=== PATIENT | female | born 1935 | race Caucasian/White ===

== ENCOUNTER 2019-02-01 09:11 | Outpatient (CLI) | payer MEDICARE ==
[2019-02-01 13:02] LABS: #Basophils 0.1 thou/uL (0.0-0.2); #Eosinphils 0.2 thou/uL (0.0-0.7); #Lymphocytes 2.6 thou/uL (1.20-3.40); #Monocytes 0.5 thou/uL (0.11-0.59); #Neutrophils 2.9 thou/uL (1.40-6.50); %Basophils 0.9 % (0.0-1.0); %Eosinophils 3.6 % (0.0-10.0); %Lymphocytes 42.1 % (21.0-51.0); %Monocytes 7.5 % (0.0-10.0); Hemoglobin 14.4 g/dL (12.0-16.0); Mean Corpuscular HGB CONC 33.4 g/dL (32.0-36.0); Mean Corpuscular Hemoglobin 31.3 pg (27.0-31.0); Mean Corpuscular Volume 93.5 fL (78.0-98.0); Mean Platelet Volume 8.6 fL (7.4-10.4); Platelet Count 227 thou/uL (130-400); RBC Distribution Width 12.3 % (11.5-14.5); Red Blood Cell (RBC) Count 4.61 mill/uL (4.20-5.40); White Blood Cell (WBC) Count 6.3 thou/uL (4.8-10.8)
[2019-02-01 13:10] LABS: Prothrombin Time 12.8 SEC (12.0-14.7)
[2019-02-01 13:25] LABS: Anion Gap 13 mmol/L (10-20); BUN (Urea Nitrogen) 15 mg/dL (9.8-20.1); Calc. Creatinine Clearance 0 mL/min (70-130); Calcium 10.2 mg/dL (7.8-10.44); Carbon Dioxide 27 mmol/L (23-31); Chloride 104 mmol/L (98-107); Estimated GFR-MDRD 67; Glucose 99 mg/dL (83-110); Potassium 4.4 mmol/L (3.5-5.1); Sodium 140 mmol/L (136-145)
--- NOTE | 2019-02-01 14:50 | RAD ---
2 VIEW CHEST: Date: 02/01/19 HISTORY: Preop. FINDINGS: Lungs are clear. Heart and mediastinum unremarkable. Osseous structures unremarkable. IMPRESSION: No acute findings. POS: [facility]
== END 2019-02-01 09:12 | disposition home or self-care (01) ==
LOC: LABBT 09:11
PROVIDERS: ATTEND Orthopaedic Surgery
DX: Z01.818 Encounter for other preprocedural examination (principal); M17.11 Unilateral primary osteoarthritis, right knee
CPT/HCPCS: 71046; 80048; 85025; 85610; 87081

== ENCOUNTER 2019-03-12 07:56 | Outpatient (CLI) | payer MEDICARE ==
[2019-03-12 09:36] LABS: #Basophils 0.1 thou/uL (0.0-0.2); #Eosinphils 0.2 thou/uL (0.0-0.7); #Lymphocytes 2.2 thou/uL (1.20-3.40); #Monocytes 0.6 thou/uL (0.11-0.59); #Neutrophils 2.7 thou/uL (1.40-6.50); %Eosinophils 2.9 % (0.0-10.0); %Lymphocytes 39.1 % (21.0-51.0); Hemoglobin 14.2 g/dL (12.0-16.0); Mean Corpuscular HGB CONC 34.5 g/dL (32.0-36.0); Mean Corpuscular Hemoglobin 31.6 pg (27.0-31.0); Mean Corpuscular Volume 91.6 fL (78.0-98.0); Platelet Count 211 thou/uL (130-400); RBC Distribution Width 11.9 % (11.5-14.5); White Blood Cell (WBC) Count 5.7 thou/uL (4.8-10.8)
[2019-03-12 09:39] LABS: Prothrombin Time 12.8 SEC (12.0-14.7)
[2019-03-12 09:54] LABS: Anion Gap 14 mmol/L (10-20); BUN (Urea Nitrogen) 13 mg/dL (9.8-20.1); Calc. Creatinine Clearance 0 mL/min (70-130); Calcium 9.7 mg/dL (7.8-10.44); Carbon Dioxide 26 mmol/L (23-31); Cardiac Risk 2.8 (Less than 4.5); Chloride 105 mmol/L (98-107); Cholesterol 127 mg/dl (< 200 Desired); Estimated GFR-MDRD 79; Glucose 109 mg/dL (83-110); HDL Cholesterol 45 mg/dL (>60 Neg Risk); LDL Cholesterol, Calculated 56 mg/dL; Potassium 4.5 mmol/L (3.5-5.1); Sodium 140 mmol/L (136-145); Triglycerides 128 mg/dL (Less than 150)
[2019-03-12 10:31] LABS: Bacteria/HPF None Seen HPF (None Seen); RBC/HPF None Seen HPF (0-3); Squamous Epithelial 0-3 HPF (0-3); WBC/HPF None Seen HPF (0-3)
== END 2019-03-12 07:57 | disposition home or self-care (01) ==
LOC: LABBT 07:56
PROVIDERS: ATTEND Orthopaedic Surgery
DX: Z01.818 Encounter for other preprocedural examination (principal); M17.11 Unilateral primary osteoarthritis, right knee
CPT/HCPCS: 80048; 80061; 81015; 85025; 85610; 87081; 93005; 93010

== ENCOUNTER 2019-03-13 06:59 | Inpatient (IN) | payer MEDICARE ==
[2019-03-12 08:19] VITALS: BMI 28.3
[2019-03-13] MEDS ORDERED: Midazolam HCl 2 mg/2 ml Vial ONE (07:12)
[2019-03-13] MEDS ORDERED: Fentanyl 100 MCG/2 ML VIAL ONE ×4 (07:12→11:55)
[2019-03-13] MEDS ORDERED: Tranexamic Acid 1,000 MG/10 ML VIAL ONE ×2 (07:18→11:47)
[2019-03-13] MEDS ORDERED: ceFAZolin Sodium (SDC) 2 GM/100 ML BAG ONE (07:18)
[2019-03-13] MEDS ORDERED: Zolpidem Tartrate 5 MG TAB PO PRN (08:09)
[2019-03-13] MEDS ORDERED: Ropivacaine HCl/PF 250 ML in Premix Bag 1 BAG NERVE BLCK SCH (08:09)
[2019-03-13] MEDS ORDERED: Ondansetron PF 4 MG/2 ML Vial IVP PRN (08:09)
[2019-03-13] MEDS ORDERED: traMADol HCl 50 MG TAB PO PRN ×2 (08:09)
[2019-03-13] MEDS ORDERED: Promethazine HCl 25 MG/ML VIAL IM PRN ×2 (08:09→11:07)
[2019-03-13] MEDS ORDERED: Fentanyl 100 MCG/2 ML VIAL IV PRN (08:15)
[2019-03-13] MEDS ORDERED: Bupivacaine/Epinephrine 0.25% 30 ML VIAL ONE (09:06)
--- NOTE | 2019-03-13 10:54 | HP ---
PREOPERATIVE DIAGNOSIS: Right knee osteoarthritis. HISTORY OF PRESENT ILLNESS: Ms. Trujillo is an 83-year-old female, who presents with pain both medially and laterally, start-up pain. She had significant pain for 2 years. Pain be 7/10. She had recent injection with good relief as well as taking the anti-inflammatories. The patient desired to proceed with surgical intervention. The has history of depression, TIA, low vitamin D, and hypertension. PAST SURGICAL HISTORY: Includes cataract surgeries, back surgeries, previous deliveries. MEDICATIONS: Include; 1. Aspirin. 2. Atorvastatin. 3. Calcium carbonate. 4. Vitamin D. 5. Fish oil. 6. Glucosamine. 7. Loratadine. 8. Multivitamin. 9. Ocuvite eye tablet. ALLERGIES: NO KNOWN DRUG ALLERGIES. SOCIAL HISTORY: The patient is a nonsmoker. Occasional alcohol. Denies illicit drug use. Lives alone. The patient is retired and was . The patient has multiple children. PHYSICAL EXAMINATION: GENERAL: Alert and oriented female, in no acute distress, resting comfortably in bed. EXTREMITIES: Right lower extremity, the patient has fairly significant valgus which is correctable 0 to 100 degrees. Ligaments appear intact. The patient walks with cane. She is neurovascularly intact distally. Brisk cap refill. LABORATORY DATA: The patient's laboratory values show H and H of 14 and 41, platelets 211. The patient has an INR of 1 and creatinine of 0.71. IMAGING DATA: Chest x-ray within normal limits. Previous films of right knee show valgus angulation with right knee osteoarthritis. ASSESSMENT AND PLAN: I discussed with the patient and family the risks and benefits of right total knee arthroplasty to include, pain, scar, bleeding, infection, decreased range of motion and strength, need for further surgery, footdrop, loss of life or limb, or blood clots. They understand these risks and benefits and elected to proceed. After the patient receives her block, she will be taken back per protocol for [facility]. Job ID: [id number] MTD[facility]
[2019-03-13] MEDS ORDERED: Promethazine HCl 25 MG/ML VIAL SLOW IVP PRN (11:07)
[2019-03-13] MEDS ORDERED: Ondansetron HCl/PF 4 MG/2 ML Vial IVP PRN (11:07)
[2019-03-13] MEDS ORDERED: Acetaminophen 325 MG TAB PO PRN (12:06)
[2019-03-13] MEDS ORDERED: diphenhydrAMINE 25 MG CAP PO PRN (12:06)
[2019-03-13] MEDS ORDERED: Fentanyl 100 MCG/2 ML VIAL SLOW IVP PRN (12:06)
[2019-03-13] MEDS ORDERED: HYDROcodone/Acetaminophen 10/325 mg Tablet PO PRN ×2 (12:06)
[2019-03-13] MEDS: Sodium Chloride 0.9% 1,000 ML IV SCH (12:49)
[2019-03-13] MEDS: Ketorolac Tromethamine 30 MG/ML VIAL IVP PRN (12:49)
--- NOTE | 2019-03-13 14:22 | RAD ---
TWO VIEW RIGHT KNEE: 03/13/19 INDICATION: Postoperative evaluation. FINDINGS: There is a right knee arthroplasty without evidence of hardware complication. Expected postprocedural findings are seen at the soft tissues. IMPRESSION: Postoperative right knee without acute hardware complication. POS: [facility]
[2019-03-13] MEDS: CEFAZOLIN 2 GM in Premix Bag 1 BAG IVPB SCH (16:16)
[2019-03-13] MEDS ORDERED: Vancomycin HCl 1 GM in Premix Bag 1 BAG IVPB SCH (20:00)
[2019-03-13] MEDS: Atorvastatin Calcium 20 MG TAB PO SCH (20:24)
[2019-03-13] MEDS: Aspirin 81 mg Enteric Coated Tablet PO SCH (20:24)
[2019-03-13] MEDS: HYDROcodone/Acetaminophen 5/325 mg Tablet PO PRN (21:51)
--- NOTE | 2019-03-14 00:08 | CON ---
DATE OF CONSULTATION: Consult from Dr. Blue for medical management. HISTORY OF PRESENT ILLNESS: This patient is an 83-year-old female who underwent total knee replacement today for her degenerative joint disease, failing conservative management. She currently says that she feels little nauseated post procedure and reports that she felt same way previously when she had a colonoscopy performed. Other than that, she does not have significant complaints. REVIEW OF SYSTEMS: Up to her admission here, all systems reviewed were negative other than joint pains. PAST MEDICAL HISTORY: Notable for hyperlipidemia, depression, and history of TIA. PAST SURGICAL HISTORY: Cataract ectomy and back surgery. FAMILY HISTORY: Mother had diabetes and heart disease. Father had glaucoma. SOCIAL HISTORY: The patient is a . Occasional alcohol. No drugs or tobacco. ALLERGIES: NONE. CURRENT MEDICATIONS: 1. Calcium with vitamin D one p.o. b.i.d. 2. Aspirin 81 mg daily. 3. Multivitamin one p.o. daily. 4. Claritin 10 mg daily. 5. Glucosamine chondroitin complex one p.o. b.i.d. 6. Fish oil one p.o. daily. 7. Ocuvite multivitamin one p.o. daily. 8. Atorvastatin 20 mg at bedtime. PHYSICAL EXAMINATION: VITAL SIGNS: Temperature is 98.3, pulse 89, respirations 18, O2 saturation 95% on room air, BP 121/75. GENERAL APPEARANCE: Age-appropriate female, in no distress. She is awake, alert, oriented, pleasant, cooperative. HEENT: PERRL. No OP lesions. NECK: Supple and symmetric. No lymphadenopathy, JVD, or bruits. HEART: Regular rate and rhythm without murmurs, gallops, or rubs. LUNGS: Clear bilaterally. ABDOMEN: Soft, nontender, and nondistended. Positive bowel sounds. EXTREMITIES: Warm and dry without significant edema. Postop dressing in place. IMPRESSION AND PLAN: 1. Postop total right knee replacement. She is having a bit of postoperative nausea. She has p.r.n. available likely anesthesia related and should resolve with a bit of time. 2. History of hyperlipidemia. Continuing with her home statin dose when she is back to taking p.o. adequately. 3. Review of most recent labs done preoperatively, everything actually looks quite good with no new input needed. 4. We will continue to follow the patient in the hospital. Should any medical issues arise, please feel free to call. Job ID: [id number]
[2019-03-14] MEDS: CEFAZOLIN 2 GM in Premix Bag 1 BAG IVPB SCH (00:29)
[2019-03-14] MEDS: Sodium Chloride 0.9% 1,000 ML IV SCH ×3 (00:32→18:43)
[2019-03-14 04:47] LABS: Hemoglobin 11.9 g/dL (12.0-16.0); Mean Corpuscular HGB CONC 35.2 g/dL (32.0-36.0); Mean Corpuscular Hemoglobin 32.6 pg (27.0-31.0); Mean Corpuscular Volume 92.5 fL (78.0-98.0); Mean Platelet Volume 8.6 fL (7.4-10.4); Platelet Count 165 thou/uL (130-400); RBC Distribution Width 11.7 % (11.5-14.5); Red Blood Cell (RBC) Count 3.66 mill/uL (4.20-5.40)
[2019-03-14] MEDS: HYDROcodone/Acetaminophen 5/325 mg Tablet PO PRN ×4 (04:57→20:08)
[2019-03-14] MEDS: Ketorolac Tromethamine 30 MG/ML VIAL IVP PRN ×2 (08:20→20:12)
[2019-03-14] MEDS: Aspirin 81 mg Enteric Coated Tablet PO SCH ×2 (08:21→20:08)
[2019-03-14] MEDS: Loratadine 10 MG TAB PO SCH ×2 (08:21→08:24)
[2019-03-14] MEDS: Ferrous Gluconate 324 MG TAB PO SCH ×2 (08:21→20:07)
[2019-03-14] MEDS: Senokot S 8.6-50 MG TAB PO SCH ×2 (08:21→20:08)
[2019-03-14] MEDS: Multivitamin W/ Minerals 1 TAB PO SCH (08:22)
[2019-03-14] MEDS ORDERED: Aspirin 81 mg Enteric Coated Tablet PO SCH (09:00)
--- NOTE | 2019-03-14 09:44 | OP ---
DATE OF PROCEDURE: 03/13/2019 PREOPERATIVE DIAGNOSIS: Right knee osteoarthritis valgus. POSTOPERATIVE DIAGNOSIS: Right knee osteoarthritis valgus. PROCEDURE PERFORMED: Right total knee arthroplasty. YARD CONDUCTOR: Mckinley Hermosillo PA-C ANESTHESIOLOGIST: Taye Osman MD ANESTHESIA: The patient received a LMA single-shot sciatic and an adductor canal catheter. ESTIMATED BLOOD LOSS: 100 mL. TOURNIQUET TIME: 63 minutes at 300 mmHg. ANTIBIOTICS: Ancef 2 g, vancomycin 1 g, TXA 1 g. The patient had a [place] [employer] size 4 femur, size 4 tibia base plate, standard base plate 9, CS poly and A29 patella. COMPLICATIONS: None. HISTORY OF PRESENT ILLNESS: Ms. Trujillo is a pleasant 83-year-old female, presenting with right knee pain for several years. The patient failed conservative measures and desired to proceed with right total knee arthroplasty. Discussed with her the risks and benefits of surgery, pain, scar, bleeding, infection, damage to vital structures, decreased range of motion and strength, fracture above or below the stem, need for further surgery, loss of life or limb. The patient understood the risks and benefits of the procedure and would like to proceed. DESCRIPTION OF PROCEDURE: Time-out was performed designating the patient's right lower extremity as the operative site based on site, consents, and marking. After time-out, the patient's right lower extremity was prepped and draped in sterile fashion. Tourniquet was brought up and left for a total of 63 minutes. Anterior midline approach, medial patellar arthrotomy, excised the fat pad, and did a medial soft tissue release. We then everted the patella, placed Hohmann in place. We mapped out the distal femur cut, 8, 7, and 4 degrees of anterior slope with 0 degrees of varus and valgus, placed our 3 degrees external rotation guide in position, pinned in position, measured to 4, placed a 4 block, cut anterior and posterior, and chamfer cuts. Removed all the bone osteophytes. We then placed our pickle fork in position, placed an ACL and a portion of lateral meniscus to expose the distal tibia, cut the tibia at 3, 5, and 4 degrees of posterior slope with 0 degrees of varus and valgus, removed the bone, and did a subtle soft tissue medial release. We then placed a laminar lead injection mold technician and we felt we had a good position for 9 mm poly, placed lamina lead injection mold technician, knocked off posterior osteophytes, removed osteophytes, decompressed the PCL. We then pinned our size 4 tray into position , which we felt we were aligned a line. We pinned into position anterior one- third of the tibial tubercle, placed a 9 mm poly in position, placed our femur, reduced it. The patient given full extension, had good stability varus and valgus, good posterior drawer. We liked the position in full extension. We then everted the patella, cut it down from about 24 down to about roughly 12, placed A29 patella, felt like it tracked well, removed all the trials, cut our keel. There was a cyst in the posterior tibia, which we had curetted, which we are going to fill ultimately with cement, cut our keel, rasped the left posterior, but she did not have very good, just slightly tight flexion. We placed all of our implants in position, washed out the joint and we cemented our tibia, cementing the defect of the tibial cyst. We placed our poly, removed excess cement. We placed our femur, cemented our femur, removed excess cement. Cemented our patella, removed excess cement, washed. Looked again, made sure we had cleaned out all the cement, washed the joint again and placed #2 Vicryl to close the arthrotomy, #2 Stratafix, 0 Stratafix, 2-0 Stratafix, and glue. The patient will be admitted to [facility], admitted postop, will be followed inhouse, discharge based on activity postop. Job ID: [id number] [facility]
[2019-03-14] MEDS ORDERED: Polyethylene Glycol 3350 17 GM Packet PO PRN (10:49)
--- NOTE | 2019-03-14 17:45 | PDOC.HOSPP ---
- Subjective Encounter Date: 03/14/19 Encounter Time: 17:00 Subjective: Patient seen and examined for med mngt. No CP/SOB/fever. No new complaints. No overnight events - Objective Vital Signs & Weight: Vital Signs (12 hours) Temp Pulse Resp BP Pulse Ox 03/14/19 15:55 98.8 F 80 14 131/68 92 L 03/14/19 08:04 99.9 F H 78 14 112/68 92 L 03/14/19 08:00 92 L 03/14/19 06:03 98.9 F Weight Admit Weight 165 lb Weight 165 lb I&O: 03/13/19 03/14/19 03/15/19 06:59 06:59 06:59 Intake Total 2200 Output Total 800 Balance 1400 Result Diagrams: 03/14/19 04:23 ROS - Review of Systems Respiratory: denies: cough, dry, shortness of breath, hemoptysis, SOB with excertion, pleuritic pain, sputum, wheezing, other Cardiovascular: denies: chest pain, palpitations, orthopnea, paroxysmal noc. dyspnea, edema, light headedness, other - Medication Medications: Active Medications Generic Name Dose Route Start Last Admin Trade Name Freq PRN Reason Stop Dose Admin Acetaminophen 650 mg 03/13/19 12:06 03/14/19 04:56 Tylenol PO 650 mg Q4H PRN Administration Headache/Fever or Pain Hydrocodone Bitart/Acetaminophen 1 tab 03/13/19 08:09 03/14/19 04:57 [place] 5/325 PO 1 tab Q4H PRN Administration Mild Pain (1-3) Hydrocodone Bitart/Acetaminophen 2 tab 03/13/19 08:09 03/14/19 13:53 [place] 5/325 PO 2 tab Q4H PRN Administration For Moderate Pain 4-6 Aspirin 81 mg 03/13/19 21:00 03/14/19 08:21 Ecotrin PO 81 mg BID TIA Administration Atorvastatin Calcium 20 mg 03/13/19 21:00 03/13/19 20:24 Lipitor PO 20 mg HS TIA Administration Ferrous Gluconate 324 mg 03/14/19 09:00 03/14/19 08:21 Fergon PO 324 mg BID TIA Administration Ropivacaine 250 ml/ Device 250 mls @ 10 mls/hr 03/13/19 08:09 03/14/19 08:57 NERVE BLCK 250 mls INF TIA Administration Sodium Chloride 1,000 mls @ 100 mls/hr 03/13/19 12:06 03/14/19 08:22 Normal Saline 0.9% IV Not Given .Q10H TIA Iron/Minerals/Multivitamins 1 tab 03/14/19 09:00 03/14/19 08:22 Theragran M PO 1 tab DAILY TIA Administration Ketorolac Tromethamine 15 mg 03/13/19 12:06 03/14/19 08:20 Toradol IVP 03/15/19 12:07 15 mg Q8HR PRN Administration Pain Loratadine 10 mg 03/14/19 09:00 03/14/19 08:24 Claritin PO Not Given DAILY TIA Ondansetron HCl 4 mg 03/13/19 08:09 03/13/19 12:49 Zofran IVP 4 mg Q6H PRN Administration Nausea/Vomiting Promethazine HCl 12.5 mg 03/13/19 08:09 03/13/19 17:39 Phenergan IM 12.5 mg Q4H PRN Administration Nausea Senna/Docusate Sodium 2 tab 03/14/19 09:00 03/14/19 08:21 Senokot S PO 2 tab BID TIA Administration - Exam NAD Heart: RRR, no gallops Respiratory: CTAB, no rales Gastrointestinal: soft, non-distended Extremities: no edema Neurological: no new deficit Psychiatric: normal affect, A&O x 3 Hosp A/P (1) HLD (hyperlipidemia) Code(s): E78.5 - HYPERLIPIDEMIA, UNSPECIFIED Status: Chronic (2) CKD (chronic kidney disease) stage 2, GFR 60-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
[2019-03-14] MEDS: Atorvastatin Calcium 20 MG TAB PO SCH (20:08)
[2019-03-15] MEDS: Sodium Chloride 0.9% 1,000 ML IV SCH ×2 (05:13→12:41)
[2019-03-15 06:07] LABS: Hemoglobin 11.2 g/dL (12.0-16.0); Mean Corpuscular HGB CONC 34.1 g/dL (32.0-36.0); Mean Corpuscular Hemoglobin 31.8 pg (27.0-31.0); Mean Platelet Volume 9.2 fL (7.4-10.4); Platelet Count 159 thou/uL (130-400); RBC Distribution Width 11.9 % (11.5-14.5); Red Blood Cell (RBC) Count 3.54 mill/uL (4.20-5.40); White Blood Cell (WBC) Count 8.4 thou/uL (4.8-10.8)
[2019-03-15] MEDS: HYDROcodone/Acetaminophen 5/325 mg Tablet PO PRN ×3 (06:19→14:50)
[2019-03-15 08:45] VITALS: TEMP 98.5
[2019-03-15] MEDS: Loratadine 10 MG TAB PO SCH (09:24)
[2019-03-15] MEDS: Aspirin 81 mg Enteric Coated Tablet PO SCH (09:24)
[2019-03-15] MEDS: Multivitamin W/ Minerals 1 TAB PO SCH (09:24)
[2019-03-15] MEDS: Ferrous Gluconate 324 MG TAB PO SCH (09:24)
[2019-03-15] MEDS: Senokot S 8.6-50 MG TAB PO SCH (09:25)
[2019-03-15 11:38] VITALS: BP 135/75
== END 2019-03-15 15:10 | disposition home or self-care (01) | DRG 470 ==
LOC: SDC 06:59 → SURG B 12:32
PROVIDERS: ADMIT Orthopaedic Surgery; ATTEND Orthopaedic Surgery
PROC: 0SRC0J9 Replacement of Right Knee Joint with Synthetic Substitute, Cemented, Open Approach (ICD-10-PCS; principal; 2019-03-13)
DX: M17.11 Unilateral primary osteoarthritis, right knee (principal); F32.9 Major depressive disorder, single episode, unspecified; E78.5 Hyperlipidemia, unspecified; I12.9 Hypertensive chronic kidney disease with stage 1 through stage 4 chronic kidney disease, or unspecified chronic kidney disease; N18.2 Chronic kidney disease, stage 2 (mild); Z86.73 Personal history of transient ischemic attack (TIA), and cerebral infarction without residual deficits; Z79.82 Long term (current) use of aspirin; Z98.890 Other specified postprocedural states
CPT/HCPCS: 36415; 80048; 80061; 81015; 85025; 85027; 85610; 87081; 93005; 93010; C1713; C1776; J0690; J1885; J2250; J2405; J2550; J2795; J3010; J3370

== ENCOUNTER 2020-09-16 10:08 | Outpatient (CLI) | payer MEDICARE ==
--- NOTE | 2020-09-16 11:03 | BD ---
EXAM: DEXA bone density examination HISTORY: 84-year-old postmenopausal female for screening COMPARISON: None FINDINGS: L1--bone mineral density 1.090 g/sq cm; T score 0.9 L2--bone mineral density 1.134 g/sq cm; T score 1.0 L3--bone mineral density 1.206 g/sq cm; T score 1.1 L4--bone mineral density 1.083 g/sq cm; T score 0.2 Total L1-L4--bone mineral density 1.132 g/sq cm; T score 0.8 Left femoral neck--bone mineral density0.881; T score 0.3 Total proximal left femur--bone mineral density 1.051; T score 0.9 IMPRESSION: Normal bone density.
== END 2020-09-16 10:09 | disposition home or self-care (01) ==
LOC: BICMAMMO 10:08
PROVIDERS: ATTEND Nurse Practitioner Family
DX: Z13.820 Encounter for screening for osteoporosis (principal); M17.11 Unilateral primary osteoarthritis, right knee; Z78.0 Asymptomatic menopausal state
CPT/HCPCS: 77080

== ENCOUNTER 2023-04-08 09:29 | Outpatient (CLI) | payer MEDICARE ==
[2023-04-08 11:15] LABS: #Basophils 0.1 10x3/uL (0.0-0.2); #Eosinphils 0.2 10x3/uL (0.0-0.5); #Monocytes 0.6 10x3/uL (0.0-1.1); #Neutrophils 3.3 10x3/uL (1.5-8.4); %Basophils 1.2 % (0.0-2.0); %Eosinophils 2.6 % (0.0-6.0); %Monocytes 9.6 % (0.0-10.0); %Neutrophils 54.3 % (40.0-75.0); Hemoglobin 13.5 g/dL (12.0-15.5); Mean Corpuscular HGB CONC 33.8 g/dL (32.0-36.0); Mean Corpuscular Hemoglobin 30.9 pg (27.0-33.0); Mean Corpuscular Volume 91.5 fl (81.6-98.3); Mean Platelet Volume 11.3 fl (7.4-10.4); Platelet Count 233 10x3/uL (150-450); RBC Distribution Width 12.8 % (11.5-14.5); Red Blood Cell (RBC) Count 4.37 10x6/uL (3.90-5.03); White Blood Cell (WBC) Count 6.1 10x3/uL (3.5-10.5)
[2023-04-08 11:38] LABS: Anion Gap 12 mmol/L (10-20); BUN (Urea Nitrogen) 11 mg/dL (9.8-20.1); Calc. Creatinine Clearance 0 mL/min (70-130); Calcium 9.1 mg/dL (7.8-10.44); Carbon Dioxide 28 mmol/L (23-31); Chloride 106 mmol/L (98-107); Estimated GFR 82; Glucose 106 mg/dL (83-110); Potassium 4.2 mmol/L (3.5-5.1); Sodium 142 mmol/L (136-145)
== END 2023-04-08 09:30 | disposition home or self-care (01) ==
LOC: LABBT 09:29
PROVIDERS: ATTEND Orthopaedic Surgery
DX: Z01.812 Encounter for preprocedural laboratory examination (principal); M17.12 Unilateral primary osteoarthritis, left knee
CPT/HCPCS: 80048; 85025; 85610; 87081

== ENCOUNTER 2023-04-12 05:35 | Observation (INO) | payer MEDICARE ==
[2023-04-08 10:22] VITALS: BMI 29.2
[2023-04-12] MEDS ORDERED: Sodium Chloride 0.9% 100 ML ONE ×2 (05:52→06:53)
[2023-04-12] MEDS ORDERED: Tranexamic Acid 1,000 MG/10 ML VIAL ONE (05:52)
[2023-04-12] MEDS ORDERED: Vancomycin 1 GM/200 ML (FROZEN) BAG ONE (05:52)
[2023-04-12] MEDS ORDERED: EPINEPHrine 1 MG/ML AMP ONE ×2 (06:24→06:38)
[2023-04-12] MEDS ORDERED: Bupivacaine 0.25% HCL 30 ML VIAL ONE (06:24)
[2023-04-12] MEDS ORDERED: fentaNYL PF 100 MCG/2 ML SYRINGE ONE (06:31)
[2023-04-12] MEDS ORDERED: Bupivacaine PF 0.5% 30 ML VIAL ONE (06:38)
[2023-04-12] MEDS ORDERED: Midazolam HCl 2 mg/2 ml Vial ONE (06:38)
[2023-04-12] MEDS ORDERED: Lidocaine 1% (PF) 30 ML VIAL ONE (06:38)
[2023-04-12] MEDS ORDERED: fentaNYL 50 mcg/mL 1 mL Vial ONE ×5 (06:38→09:59)
[2023-04-12] MEDS ORDERED: CEFAZOLIN 2 GM VIAL ONE (06:53)
[2023-04-12] MEDS ORDERED: Scopolamine 1.5 mg/72 hour Patch ONE (06:54)
[2023-04-12] MEDS ORDERED: Lidocaine 1% PF 5 ML VIAL ONE (07:24)
[2023-04-12] MEDS ORDERED: Ondansetron PF 4 MG/2 ML Vial ONE (07:24)
[2023-04-12] MEDS ORDERED: Dexamethasone 20 MG/5 ML VIAL ONE (07:24)
[2023-04-12] MEDS ORDERED: PROPOFOL 200 MG/20 ML VIAL ONE (07:24)
[2023-04-12] MEDS ORDERED: Metoclopramide HCl 10 MG/2 ML VIAL ONE (07:24)
[2023-04-12] MEDS ORDERED: fentaNYL 50 mcg/mL 1 mL Vial SLOW IVP PRN (07:43)
[2023-04-12] MEDS ORDERED: Zolpidem Tartrate 5 MG TAB PO PRN ×2 (07:45→09:20)
[2023-04-12] MEDS ORDERED: traMADol HCl 50 MG TAB PO PRN ×2 (07:45)
[2023-04-12] MEDS ORDERED: Promethazine HCl 25 MG/ML VIAL IM PRN ×2 (07:45→09:20)
[2023-04-12] MEDS ORDERED: Ropivacaine 0.2% 550 ML 550 ML NERVE BLCK SCH (07:45)
[2023-04-12] MEDS ORDERED: Ondansetron PF 4 MG/2 ML Vial IVP PRN ×2 (07:45→09:20)
[2023-04-12] MEDS ORDERED: HYDROcodone/Acetaminophen 10/325 mg Tablet PO PRN ×2 (07:45)
[2023-04-12] MEDS ORDERED: HYDROmorphone 2 MG/ML VIAL ONE (08:02)
[2023-04-12] MEDS ORDERED: Aspirin 81 mg Enteric Coated Tablet PO SCH (09:00)
[2023-04-12] MEDS ORDERED: diphenhydrAMINE 25 MG CAP PO PRN (09:20)
[2023-04-12] MEDS ORDERED: Acetaminophen 325 MG TAB PO PRN (09:20)
[2023-04-12] MEDS ORDERED: Ketorolac Tromethamine 30 MG/ML VIAL ONE (10:06)
[2023-04-12] MEDS: Multivitamin W/ Minerals 1 TAB PO SCH (12:53)
[2023-04-12] MEDS: Senokot S 8.6-50 MG TAB PO SCH ×2 (12:53→21:01)
[2023-04-12] MEDS: Ketorolac Tromethamine 30 MG/ML VIAL IVP SCH ×3 (12:53→23:11)
[2023-04-12] MEDS: Ferrous Gluconate 324 MG TAB PO SCH ×2 (12:53→21:01)
[2023-04-12] MEDS: Sodium Chloride 0.9% 1,000 ML IV SCH ×2 (12:53→21:01)
[2023-04-12] MEDS ORDERED: Loratadine 10 MG TAB PO PRN (12:58)
[2023-04-12] MEDS: CEFAZOLIN 2 GM in Sodium Chloride 0.9% 100 ML IVPB SCH ×2 (13:54→23:11)
[2023-04-12] MEDS ORDERED: CEFAZOLIN 2 GM in Sodium Chloride 0.9% 100 ML IVPB SCH (14:00)
[2023-04-12] MEDS: Carvedilol 3.125 MG TAB PO SCH (17:05)
[2023-04-12] MEDS: Calcium Carbonate 600 MG + Vit D TAB PO SCH (20:59)
[2023-04-12] MEDS ORDERED: Atorvastatin Calcium 20 MG TAB PO SCH (21:00)
[2023-04-13] MEDS: Sodium Chloride 0.9% 1,000 ML IV SCH (05:31)
[2023-04-13] MEDS: Ketorolac Tromethamine 30 MG/ML VIAL IVP SCH ×2 (05:33→12:09)
[2023-04-13 06:33] LABS: Hematocrit 32.1 % (36.0-47.0); Hemoglobin 10.8 g/dL (12.0-16.0); Mean Corpuscular HGB CONC 33.6 g/dL (32.0-36.0); Mean Corpuscular Hemoglobin 31.4 pg (27.0-31.0); Mean Corpuscular Volume 93.3 fl (78.0-98.0); Mean Platelet Volume 11.4 fL (7.4-10.4); Platelet Count 189 10x3/uL (130-400); Red Blood Cell (RBC) Count 3.44 mill/uL (4.20-5.40); White Blood Cell (WBC) Count 9.2 10x3/uL (4.8-10.8)
[2023-04-13 08:07] VITALS: TEMP 98.3
[2023-04-13] MEDS: Calcium Carbonate 600 MG + Vit D TAB PO SCH (08:29)
[2023-04-13] MEDS: Ferrous Gluconate 324 MG TAB PO SCH (08:29)
[2023-04-13] MEDS: Multivitamin W/ Minerals 1 TAB PO SCH (08:30)
[2023-04-13] MEDS: Carvedilol 3.125 MG TAB PO SCH (08:30)
[2023-04-13] MEDS: Senokot S 8.6-50 MG TAB PO SCH (08:35)
[2023-04-13] MEDS ORDERED: Fish Oil 1,000 MG CAP PO SCH (09:00)
[2023-04-13] MEDS ORDERED: Cholecalciferol 1,000 UNITS (25 MCG) TAB PO SCH (09:00)
[2023-04-13] MEDS ORDERED: Multivitamin W/ Minerals 1 TAB PO SCH (09:00)
[2023-04-13] MEDS ORDERED: Apixaban 5 MG TAB PO SCH (09:00)
[2023-04-13] MEDS ORDERED: Zinc Sulfate 220 MG CAP PO SCH (09:00)
[2023-04-13] MEDS ORDERED: Vit A,C & E/Lutein/Minerals Tablet PO SCH (09:00)
[2023-04-13 12:10] VITALS: BP 124/70
== END 2023-04-13 13:20 | disposition home or self-care (01) ==
LOC: SDC 05:35 → SJJU 09:20
PROVIDERS: ADMIT Orthopaedic Surgery; ATTEND Orthopaedic Surgery
PROC: 0SRD0JZ Replacement of Left Knee Joint with Synthetic Substitute, Open Approach (ICD-10-PCS; principal; 2023-04-12)
DX: M17.12 Unilateral primary osteoarthritis, left knee (principal); I48.91 Unspecified atrial fibrillation; Z86.16 Personal history of COVID-19; Z96.651 Presence of right artificial knee joint; Z86.73 Personal history of transient ischemic attack (TIA), and cerebral infarction without residual deficits
CPT/HCPCS: 27447; 73560; 85027; 97110 ×2; 97116 ×2; 97530; A4306; C1776; J3010; J3370; 36415; J0171; J1100; J1170; J1885; J2001; J2250; J2405; J2704; J2765; J2795; J3490; S0020

== ENCOUNTER 2024-09-14 13:41 | Emergency (ER) | payer MEDICARE ==
[2024-09-14] MEDS ORDERED: Acetaminophen 500 MG TAB ONE (14:28)
[2024-09-14 15:20] LABS: #Basophils 0.06 10x3/uL (0.0-0.2); %Basophils 0.9 % (0.0-1.0); %Eosinophils 2.1 % (0.0-10.0); %Lymphocytes 34.8 % (21.0-51.0); %Monocytes 8.2 % (0.0-10.0); %Neutrophils 53.8 % (42.0-75.0); Hematocrit 36.8 % (36.0-47.0); Hemoglobin 12.5 g/dL (12.0-16.0); Mean Corpuscular Hemoglobin 31.1 pg (27.0-31.0); Mean Corpuscular Volume 91.5 fL (78.0-98.0); Mean Platelet Volume 11.2 fL (7.4-10.4); Platelet Count 220 10x3/uL (130-400); RBC Distribution Width 12.9 % (11.5-14.5); Red Blood Cell (RBC) Count 4.02 mill/uL (4.20-5.40)
[2024-09-14 15:36] LABS: ALT (SGPT) 14 U/L (Less than 34); AST (SGOT) 27 U/L (11-34); Albumin 3.7 g/dL (3.1-4.5); Alkaline Phosphatase 64 U/L (40-110); Anion Gap 13 mmol/L (10-20); BUN (Urea Nitrogen) 15 mg/dL (9.8-20.1); Bilirubin, Total 0.7 mg/dL (0.3-1.2); Calc. Creatinine Clearance 0 mL/min (70-130); Calcium 9.3 mg/dL (7.8-10.44); Carbon Dioxide 26 mmol/L (23-31); Chloride 107 mmol/L (98-107); Estimated GFR 72; Globulin 3.2 g/dL (2.4-3.5); Glucose 141 mg/dL (83-110); Potassium 3.9 mmol/L (3.5-5.1); Protein, Total 6.9 g/dL (5.8-8.1); Sodium 142 mmol/L (136-145)
== END 2024-09-14 15:42 | disposition home or self-care (01) ==
LOC: ERS 13:41
DX: S00.93XA Contusion of unspecified part of head, initial encounter (principal); W01.10XA Fall on same level from slipping, tripping and stumbling with subsequent striking against unspecified object, initial encounter
CPT/HCPCS: 70450; 70486; 72125; 80053; 85025; 94760

== ENCOUNTER 2025-05-09 10:15 | Outpatient (CLI) | payer MEDICARE | END 2025-05-09 10:16 | disposition home or self-care (01) | LOC: BICMAMMO 10:15 | PROVIDERS: ATTEND Nurse Practitioner Family | DX: Z78.0 Asymptomatic menopausal state (principal) | CPT/HCPCS: 77080 ==